=== PATIENT | male | born 1950 | race Asian ===

== ENCOUNTER 2016-11-07 07:28 | Emergency (ER) | payer MEDICARE, MEDICAID ==
[~2016-11-07] VITALS: Ht 167.6 cm; Wt 81.6 kg
[~2016-11-07 07:28] MED LIST: NKM
[2016-11-07 07:35] VITALS: BP 138/71
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
[2016-11-07] MEDS ORDERED: Bacitracin Oint UD TOPIC ONE (09:08)
[2016-11-07] MEDS ORDERED: Norco 5mg/325mg tab ORAL ONE (09:15)
[2016-11-07] MEDS ORDERED: IBUPROFEN600 MG ORAL (09:47)
[2016-11-07 10:04] VITALS: BP 112/75
--- NOTE | 2016-11-07 10:08 | Diagnostic Imaging Report ---
Indication: PAIN Technique: 3 views of the left elbow Comparison: none Findings: No acute fractures. No dislocations. No joint effusion. Joint spaces are preserved. Normal mineralization. No radiopaque foreign body. Impression: Negative
--- NOTE | 2016-11-07 14:50 | Diagnostic Imaging Report ---
Indication: PAIN Technique: One view of the chest Comparison: none Findings: Inspiration is suboptimal. Atelectatic changes are seen at both lung bases. There is a left subclavian port catheter, tip at the innominate venous junction. The heart is enlarged Impression: Hypoventilatory exam with bibasilar atelectasis. No acute process otherwise Cardiomegaly. Port catheter
== END 2016-11-07 10:05 | disposition home or self-care (01) ==
LOC: EDBD 07:28 → EMR 08:18
DX: S50.312A Abrasion of left elbow, initial encounter (principal); T14.8 Other injury of unspecified body region; Z85.038 Personal history of other malignant neoplasm of large intestine; R07.9 Chest pain, unspecified; V03.90XA Pedestrian on foot injured in collision with car, pick-up truck or van, unspecified whether traffic or nontraffic accident, initial encounter; Y92.410 Unspecified street and highway as the place of occurrence of the external cause; Y99.8 Other external cause status
CPT/HCPCS: 71010; 99284

== ENCOUNTER 2016-11-12 23:27 | Emergency (ER) | payer MEDICARE, MEDICAID ==
[~2016-11-12] VITALS: Ht 165.1 cm; Wt 81.6 kg
[~2016-11-12 23:27] MED LIST changes: +IBUPROFEN600 MG ORAL
[2016-11-13] MEDS ORDERED: KEFLEX500 MG ORAL (00:29)
[2016-11-13] MEDS ORDERED: BACITRACIN-POL1 EACH TOPIC (00:29)
[2016-11-13] MEDS ORDERED: PERCOCET 5-3251 EACH ORAL (00:29)
[2016-11-13] MEDS ORDERED: Polysporin Oint 30gm TOPIC SCH (00:30)
[2016-11-13] MEDS ORDERED: Bacitracin Oint UD TOPIC ONE (00:30)
[2016-11-13] MEDS ORDERED: Oxycodone/Acetaminophen 5-325 ORAL ONE (00:30)
[2016-11-13] MEDS ORDERED: Cephalexin 500mg cap ORAL ONE (00:30)
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
[2016-11-13 01:45] LABS: BASOPHILS % (AUTO) 0.8 % (0.0-2.0); EOSINOPHILS % (AUTO) 2.6 % (0.0-3.0); LYMPHOCYTES % (AUTO) 32.4 % (20.0-45.0); MEAN CORPUSCULAR HEMOGLOBIN 32.1 PG (27.0-31.0); MEAN CORPUSCULAR HGB CONC 32.8 G/DL (32.0-36.0); MEAN CORPUSCULAR VOLUME 98 FL (80-99); MEAN PLATELET VOLUME 7.8 FL (6.5-10.1); MONOCYTES % (AUTO) 5.6 % (1.0-10.0); NEUTROPHILS % (AUTO) 58.7 % (45.0-75.0); PLATELET COUNT 144 K/UL (150-450); RED BLOOD COUNT 4.65 M/UL (4.70-6.10); RED CELL DISTRIBUTION WIDTH 12.8 % (11.6-14.8)
[2016-11-13 01:53] VITALS: BP 116/84
[2016-11-13 02:03] LABS: ALANINE AMINOTRANSFERASE 18 U/L (3-41); ALBUMIN/GLOBULIN RATIO 1.3 (1.0-2.7); ANION GAP 10 (5-15); ASPARTATE AMINO TRANSFERASE 25 U/L (5-40); CARBON DIOXIDE 27 mEQ/L (20-30); CHLORIDE 102 mEQ/L (98-107); CREATININE 0.8 mg/dL (0.7-1.2); GLOMERULAR FILTRATION RATE > 60 mL/min (>60); HEMOLYSIS 45; POTASSIUM 4.8 mEQ/L (3.4-4.9); SODIUM 139 mEQ/L (135-145); TOTAL PROTEIN 6.8 g/dL (6.6-8.7)
[2016-11-13 03:42] VITALS: BP 127/86
[2016-11-13] MEDS ORDERED: NKM (03:43)
[2016-11-13] MEDS ORDERED: fentaNYL 100 mcg/2 mL IV ONE (05:00)
[2016-11-13 05:16] VITALS: BP 139/89
[2016-11-13 06:40] VITALS: BP 104/73
[2016-11-13 07:16] VITALS: BP 104/73
--- NOTE | 2016-11-13 09:36 | Diagnostic Imaging Report ---
Clinical Indication: Left-sided rib pain Technique: IV administration nonionic contrast. Spiral acquisition obtained through the chest. Multiplanar reconstructions generated. Total dose length product 892 mGycm. CTDIvol(s) 8, 73, 23 mGy. Dose reduction achieved using automated exposure control Comparison: Rib radiographs of one hour earlier Findings: There is a nondisplaced fracture of the left third rib which appears partially healed. There is an acute appearing fracture deformity of the lateral left fourth rib, as well as a nondisplaced subacute appearing fracture deformity of the posterior medial left fourth rib.. Some sclerosis in the anterolateral left fourth rib probably reflects an old healed fracture. There is a fracture deformity of indeterminate acuity of the posterior left fifth rib. There is an acute appearing fracture of the posterior left sixth rib, as well as an incompletely healed fracture deformity of the lateral left sixth rib. There are acute appearing fractures of the posterior left seventh and eighth ribs. No right rib fractures are demonstrated. The remaining bones are intact. There are mild degenerative changes of the thoracic spine There is trace left pleural fluid. Atelectatic changes at the lung bases are noted. There is mild indistinctness to the pulmonary vasculature, as well as subtle slight groundglass opacity which may indicate very mild pulmonary edema there are no focal dense consolidation is demonstrated. No masses or nodules. There is a left chest port catheter. The heart is moderately enlarged. There may be minimal pericardial effusion. No mediastinal hilar mass or adenopathy. The included thyroid is unremarkable. The included upper abdominal anatomy is unremarkable. Impression: Positive for multiple left rib fractures, as detailed above. These appear to be of of varying acuity, but most are acute Trace left pleural fluid. This may be posttraumatic or related to congestive heart failure Mild interstitial congestion and very minimal subtle groundglass opacities of the lungs, may reflect a component of mild congestive heart failure as well. Cardiomegaly Equivocal minimal pericardial fluid Bibasilar atelectatic changes Left chest port catheter Minimal degenerative spondylosis This agrees with the preliminary interpretation provided overnight by [facility]. The CT scanner at [facility] is accredited by the [employer] and the scans are performed using protocols designed to limit radiation exposure to as low as reasonably achievable to attain images of sufficient resolution adequate for diagnostic evaluation.
--- NOTE | 2016-11-13 10:27 | Diagnostic Imaging Report ---
Indication: PAIN Technique: Multiple views of the left ribs Comparison: Chest radiograph 11/07/2016 Findings: There is a nondisplaced fracture of the posterior left fourth rib and a minimally displaced fracture of the lateral left fourth rib. There is a minimally displaced fracture of the posterior left fifth rib. There is a fracture of the lateral left eighth rib. There is a nondisplaced fracture of the lateral left eighth rib. No gross pneumothorax. Left chest port catheter is again demonstrated. Impression: Multiple left rib fractures, as described. Please also refer to subsequent chest CT report No pneumothorax This agrees with the preliminary interpretation provided by the emergency room physician
--- NOTE | 2016-11-13 15:30 | Cardiology Report ---
APPROVED REPORT EKG Measurement Heart [id number] Normal sinus rhythm Minimal voltage criteria for LVH, may be normal variant Inferior-posterior infarct, age undetermined Abnormal ECG
== END 2016-11-13 07:41 | disposition short-term general hospital (02) ==
LOC: EMR 23:50
DX: L03.114 Cellulitis of left upper limb (principal); S22.42XA Multiple fractures of ribs, left side, initial encounter for closed fracture; V03.99XA Pedestrian with other conveyance injured in collision with car, pick-up truck or van, unspecified whether traffic or nontraffic accident, initial encounter; Y93.01 Activity, walking, marching and hiking; Y92.410 Unspecified street and highway as the place of occurrence of the external cause; Z85.038 Personal history of other malignant neoplasm of large intestine; I51.7 Cardiomegaly; M47.814 Spondylosis without myelopathy or radiculopathy, thoracic region
CPT/HCPCS: 36415; 71100; 71260; 80053; 85025; 93005; 96374; 99285; J3010; Q9967